=== PATIENT | male | born 1985 | race Caucasian/White ===

== ENCOUNTER 2024-12-27 05:00 | Outpatient (CLI) | payer SELFPAY | END 2024-12-27 05:01 | LOC: SPT 01-23 06:12 | PROVIDERS: Visit Provider Podiatrist Foot & Ankle Surgery | DX: Z46.89 Encounter for fitting and adjustment of other specified devices (principal); M25.571 Pain in right ankle and joints of right foot | CPT/HCPCS: L4361 ==

== ENCOUNTER 2025-01-16 14:44 | Emergency (ER) | payer SELFPAY ==
[2025-01-16 14:52] VITALS: BP 134/87; PULSE 82; TEMP 37.4; O2SAT 96; BMI 23.6
--- NOTE | 2025-01-16 15:00 | XRR_ITS ---
PROCEDURE INFORMATION: Exam: XR Right Foot Exam date and time: 01/16/2025 3:08 PM Age: 39 years old Clinical indication: Injury or trauma; Other: Dropped metal beam on foot; Blunt trauma; Right; Additional info: Pain TECHNIQUE: Imaging protocol: Radiologic exam of the right foot. Views: 3 or more views. COMPARISON: No relevant prior studies available. FINDINGS: Bones/joints: There is a subtle nondisplaced transverse fracture of the proximal metadiaphysis of the 1st metatarsal. There is no foreign body. The joint spaces are well-maintained. Soft tissues: The soft tissues are unremarkable. XR/XR foot RT min 3V* [id number] IMPRESSION: Small nondisplaced transverse fracture of the proximal metadiaphysis of the 1st metatarsal.
--- NOTE | 2025-01-16 15:02 | W.ED.EXTPRO ---
HPI - Extremity Problem General: Chief complaint: Extremity Injury, Lower Stated complaint: R foot pain Time Seen by Provider: 01/16/25 15:00 History of Present Illness: 39-year-old male presents to the emergency room after getting a crush injury to his right forefoot and a I-beam fell on his foot across his metatarsals this morning around 10:00 he managed to bear weight on to complete work but is now becoming increasingly painful he has some moderate swelling no other injuries no injury to the ankle or knee Related Data Home Medications ?Medication ?Instructions ?Recorded ?Confirmed No Known Home Medications 08/09/23 01/16/25 Previous Rx's ?Medication ?Instructions ?Recorded hydrocodone 5 mg-acetaminophen 325 1 tab PO Q6H PRN pain #7 tabs 01/16/25 mg tablet Allergies Allergy/AdvReac Type Severity Reaction Status Date / Time tramadol Allergy Severe ADR-Abdominal Verified 01/16/25 14:58 Pain Review of Systems Musc: Reports: extremity pain Physical Exam Const: COMMON NORMALS: no acute distress GENERAL APPEARANCE: cooperative and comfortable ORIENTATION/CONSCIOUSNESS: Yes awake, Yes oriented to person, Yes oriented to place and Yes oriented to time HENMT: COMMON NORMALS: normocephalic, atraumatic and hearing grossly normal bilaterally HEAD & SCALP: normocephalic and atraumatic Extremity: OTHER: Moderate swelling of the right forefoot with some ecchymosis no active bleeding no deformity. Patient is able to dorsiflex and plantarflex at the ankle discomfort of the 1st and 2nd metatarsals with moderate swelling and superficial abrasion no deformity in the laceration. Neuro: SENSORIUM/ORIENTATION: Yes oriented to person, Yes oriented to place and Yes oriented to time Skin: COMMON NORMALS: no rashes or lesions noted GENERAL SKIN EXAM: no rashes or lesions noted Course Vital Signs: Vital signs: Vital Signs Temperature 99.4 F 01/16/25 14:52 Pulse Rate 73 01/16/25 16:48 Blood Pressure 121/76 01/16/25 16:48 Pulse Oximetry 98 01/16/25 16:48 Oxygen Delivery Me thod Room Air 01/16/25 14:52 MDM - Extremity (Nontraumatic) Medical Decision Making Patient had a first metatarsal fracture. No significant displacement or angulation. He was concerned because of the degree of swelling he may have more significant injury. We are going to do a CT however patient wanted to leave. Placement of posterior splint nonweightbearing on crutches have him follow-up for an outpatient CT and follow-up with podiatry. Stressed the patient needs to be nonweightbearing. Medical Records I reviewed the patient's medical records. Lab Data I reviewed the patient's lab results. Radiology Impressions Foot X-Ray 01/16/25 15:00 IMPRESSION: Small nondisplaced transverse fracture of the proximal metadiaphysis of the 1st metatarsal. All radiology interpretation(s) finalized by discharge Discharge Plan Discharge Patient Disposition: Home Clinical Impression: Fracture of first metacarpal Condition: Stable Prescriptions: New hydrocodone-acetaminophen 5-325 mg tablet 1 tab PO Q6H PRN (Reason: pain) Qty: 7 0RF No Action No Known Home Medications Discharge Orders: Discharge ED (Routine); Ordered 01/16/25 Ordered By: Gagandeep Jha Discharge Diet: Usual diet Discharge Activity: Limit activity as instructed Patient Instructions: Opioid Safety, Pain Management, Patient Portal & Nora Instructions Stand Alone Forms: Work/School Release Print Language: [place] Coding Level of Care Code ED Database Management System Specialist for Sherri Jimenez
[2025-01-16] MEDS: HYDROcodone-acetaminophen 5-325 mg Tablet 1 TAB PO (16:26)
--- NOTE | 2025-01-16 16:36 | DCPLANNER ---
Sent to Centralized scheduling for out patient CT -
[2025-01-16 16:48] VITALS: BP 121/76; PULSE 73; O2SAT 98
--- NOTE | 2025-01-18 07:37 | DCPLANNER ---
messaged podiatry for er f/u
== END 2025-01-16 16:50 | disposition home or self-care (01) ==
PROVIDERS: Emergency Provider Family Medicine
DX: S92.314A Nondisplaced fracture of first metatarsal bone, right foot, initial encounter for closed fracture (principal); W20.8XXA Other cause of strike by thrown, projected or falling object, initial encounter
CPT/HCPCS: 29515; 73630; 99284; E0114; J9999

== ENCOUNTER → 2025-01-22 13:07 | Outpatient (BNVA) | payer SELFPAY | PROVIDERS: Visit Provider Podiatrist Foot & Ankle Surgery | DX: S93.324A Dislocation of tarsometatarsal joint of right foot, initial encounter (principal); S92.314A Nondisplaced fracture of first metatarsal bone, right foot, initial encounter for closed fracture; W20.8XXA Other cause of strike by thrown, projected or falling object, initial encounter | CPT/HCPCS: 73630 ==